=== PATIENT | female | born 1995 ===

== ENCOUNTER 2017-11-12 19:21 | Emergency (ER) | payer OTHER ==
--- NOTE | 2017-11-12 20:08 | UC ---
Abdominal Pain Female HPI - HPI Summary HPI Summary: 22 yo female has had epigstric abd pain for the past 1-2 days occurs when she swallow food lasts seconds to minutes no n/v/d no anorexia - History of Current Complaint Chief Complaint: UCAbdominalPain Stated Complaint: ABDOMINAL PAIN Time Seen by Provider: 11/12/17 19:53 Hx Obtained From: Patient Hx Last Menstrual Period: 10/25/17 Onset/Duration: Gradual Onset Timing: Intermittent Episodes Lasting: Severity Initially: Mild Severity Currently: None Pain Intensity: 0 Pain Scale Used: 0-10 Numeric Location: Epigastric Radiates: No Character: Aching Aggravating Factor(s): Food Alleviating Factor(s): Spontaneous Resolution Associated Signs and Symptoms: Positive: Negative Allergies/Adverse Reactions: Allergies Allergy/AdvReac Type Severity Reaction Status Date / Time Aspirin Allergy Vomiting Verified 11/12/17 19:33 PMH/Surg Hx/FS Hx/Imm Hx Previously Healthy: Yes - Surgical History Surgical History: None - Social History Alcohol Use: None Substance Use Type: None Smoking Status (MU): Light Every Day Tobacco Smoker Review of Systems Constitutional: Negative Skin: Negative Eyes: Negative ENT: Negative Respiratory: Negative Cardiovascular: Negative Gastrointestinal: Abdominal Pain Genitourinary: Negative Motor: Negative Neurovascular: Negative Musculoskeletal: Negative Neurological: Negative Psychological: Negative Is Patient Immunocompromised?: No All Other Systems Reviewed And Are Negative: Yes Physical Exam Triage Information Reviewed: Yes Appearance: Well-Appearing, No Pain Distress, Well-Nourished, Thin Vital Signs: Initial Vital Signs Temp 98.3 F 11/12/17 19:28 Pulse 66 11/12/17 19:28 Resp 18 11/12/17 19:28 BP 100/60 11/12/17 19:28 Pulse Ox 100 11/12/17 19:28 Vital Signs Reviewed: Yes Eyes: Positive: Conjunctiva Clear ENT: Positive: Hearing grossly normal, Dental tenderness. Negative: Nasal congestion, Nasal drainage, Muffled voice, Hoarse voice Neck: Positive: Supple, Nontender, No Lymphadenopathy Respiratory: Positive: Lungs clear, Normal breath sounds, No respiratory distress Cardiovascular: Positive: RRR, No Murmur Abdomen Description: Negative: Nontender - slight epigastric pain with deep palpation, Pulsatile Mass, Splenomegaly Musculoskeletal: Positive: ROM Intact, No Edema Neurological: Positive: Alert Psychological Exam: Normal Skin Exam: Normal Abd Pain Female Course/Dx - Differential Dx/Diagnosis Provider Diagnoses: esophagitis Discharge - Discharge Plan Condition: Stable Disposition: HOME Prescriptions: Omeprazole [Prilosec] 20 mg PO DAILY #14 cap Patient Education Materials: Esophagitis (ED) Referrals: Santos Win MD [Medical Doctor] - If Needed Additional Instructions: mylanta 30 ml every 2 hours while awake for 2-3 days to ER if symptoms worsen if symptoms are still present next week I suggest you see a gastroenterologis
== END 2017-11-12 20:06 | disposition home or self-care (01) ==
LOC: UCEAST 19:21
DX: K20.9 Esophagitis, unspecified (principal); Z88.6 Allergy status to analgesic agent; F17.210 Nicotine dependence, cigarettes, uncomplicated
CPT/HCPCS: 99202; G0463